=== PATIENT | male | born 1955 | race Caucasian/White ===

== ENCOUNTER → 2018-01-25 | Outpatient (CLI) | payer BC ==
--- NOTE | 2018-01-25 15:01 | US ---
EXAMINATION TYPE: US venous doppler duplex LE LT DATE OF EXAM: 01/25/2018 2:34 PM COMPARISON: NONE CLINICAL HISTORY: 62-year-old male M79.662 pain in left calf. Left lower leg skin redness and pain in linear course medially' taking antibiotic now SIDE PERFORMED: Left TECHNIQUE: The lower extremity deep venous system is examined utilizing real time linear array sonog eryn with graded compression, doppler sonography and color-flow sonography. FINDINGS: VESSELS IMAGED: Common Femoral Vein Deep Femoral Vein Greater Saphenous Vein * Femoral Vein Popliteal Vein Small Saphenous Vein * Proximal Calf Veins (* superficial vessels) Left Leg: Negative for DVT. Left leg is positive for superficial vein thrombosis at Greater Saphenou s Vein location from BK to ankle. IMPRESSION: 1. No evidence for DVT within the left lower extremity imaged from the groin to the upper calf. 2. However, dilated and noncompressible tortuous structures extending from below the knee to the ankl e is compatible with SVT of the greater saphenous vein.
== END | disposition home or self-care (01) ==
LOC: RADUSWWP 13:56
PROVIDERS: ATTEND Family Medicine
DX: I83.92 Asymptomatic varicose veins of left lower extremity (principal)